=== PATIENT | male | born 1935 | race Caucasian/White ===

== ENCOUNTER 2018-05-25 08:59 | Inpatient (IN) | payer OTHER ==
[~2018-05-25] VITALS: Ht 177.8 cm; Wt 76.2 kg
[~2018-05-25 08:59] MED LIST: ALBUTEROL0.09 MG/AC INH; BACTRIM DS 8001 TA1 PO; CEPHALEXIN500 M1 PO; CIPROFLOXACIN500 MG PO; CYCLOBENZAPRINE10 MG PO; FERROUS SULFAT324 M1 PO; FLAGYL500 MG PO; LEVOTHYROXINE0.05 MG PO; MEDROL DOSEPAK4 MG PO; MIRALAX POWDER255 GM PO; PERCOCET 325 MG1 TA5 PO; PROCTOCREAM-HC2.5% TP; PROVENTIL0.09 MG/AC IH; ZITHROMAX Z PA250 MG PO
[2018-05-25] MEDS ORDERED: ROPINIROLE HYDRO1 MG PO (09:12)
[2018-05-25] MEDS ORDERED: LEVOTHYROXINE75 MCG PO (09:12)
[2018-05-25] MEDS ORDERED: BACLOFEN5 MG PO (09:12)
[2018-05-25 09:36] LABS: BASO % 0.2 % (0.0-1.0); EOS % 0.9 % (1.0-4.0); HEMATOCRIT 41.4 % (42.0-52.0); HEMOGLOBIN 13.5 g/dl (14.0-18.0); LYMPH # 0.8 10*3/uL (1.3-4.4); LYMPH % 16.4 % (27.0-41.0); MEAN CELL VOLUME 95.2 fl (80.0-94.0); MEAN CORPUSCULAR HGB CONC 32.6 g/dl (33.0-37.0); MEAN PLATELET VOLUME 9.2 fl (9.6-12.3); MONO # 0.2 10*3/uL (0.1-1.0); MONO % 4.6 % (3.0-9.0); NEUT # 3.6 10*3/uL (2.3-7.9); NEUT % 77.7 % (47.0-73.0); PLATELET COUNT AUTOMATED 91 10*3/uL (130-400); RED BLOOD COUNT 4.35 10*6/uL (4.50-5.90); RED CELL DISTRI WIDTH 14.8 % (0-14.5); WHITE BLOOD COUNT 4.6 10*3/uL (4.8-10.8)
[2018-05-25 09:43] LABS: BILIRUBIN NEGATIVE (NEGATIVE); BLOOD 1+ (NEGATIVE); CLARITY SL CLOUDY (CLEAR); COLOR YELLOW (YELLOW); GLUCOSE NEGATIVE (NEGATIVE); KETONE NEGATIVE (NEGATIVE); LEUKO ESTERASE 1+ (NEGATIVE); NITRITE POSITIVE (NEGATIVE); PH 7.5 (5.0-9.0)
[2018-05-25 09:45] LABS: ACT PARTIAL THROMBO TIME 25.2 SECONDS (20.8-31.5)
[2018-05-25 09:53] LABS: ALBUMIN 3.6 gm/dl (3.1-4.5); ALKALINE PHOSPHATASE 106 U/L (45-117); BUN 23 mg/dl (7-24); CHLORIDE 104 mmol/L (98-107); CREATININE 1.49 mg/dL (0.70-1.30); POTASSIUM 4.1 mmol/L (3.5-5.1); SGOT/AST 22 IU/L (3-35); SGPT/ALT 21 U/L (12-78); SODIUM 141 mmol/L (136-145); TOTAL PROTEIN 7.5 gm/dL (6.4-8.2)
[2018-05-25 09:55] LABS: TROPONIN I < 0.015 ng/ml (<0.045)
[2018-05-25 09:57] LABS: BACTERIA 1+; WBC TNTC wbc/hpf (0-5)
[2018-05-25 10:18] VITALS: BP 171/79
[2018-05-25 10:32] VITALS: BP 186/91
[2018-05-25 12:00] VITALS: BP 185/93
[2018-05-25 16:00] VITALS: BP 194/96
[2018-05-25 19:28] VITALS: BP 162/78
[2018-05-25 20:00] VITALS: BP 146/65
[2018-05-26] VITALS: BP 152/77
[2018-05-26 06:30] LABS: EOS # 0.1 10*3/uL (0.0-0.4); EOS % 1.5 % (1.0-4.0); HEMATOCRIT 40.2 % (42.0-52.0); HEMOGLOBIN 12.9 g/dl (14.0-18.0); LYMPH # 0.9 10*3/uL (1.3-4.4); LYMPH % 22.1 % (27.0-41.0); MEAN CELL VOLUME 96.9 fl (80.0-94.0); MEAN CORPUSCULAR HGB 31.1 pg (27.0-31.0); MEAN CORPUSCULAR HGB CONC 32.1 g/dl (33.0-37.0); MEAN PLATELET VOLUME 9.8 fl (9.6-12.3); MONO # 0.2 10*3/uL (0.1-1.0); MONO % 6.2 % (3.0-9.0); NEUT # 2.7 10*3/uL (2.3-7.9); NEUT % 69.7 % (47.0-73.0); PLATELET COUNT AUTOMATED 92 10*3/uL (130-400); RED BLOOD COUNT 4.15 10*6/uL (4.50-5.90); WHITE BLOOD COUNT 3.9 10*3/uL (4.8-10.8)
[2018-05-26 07:06] LABS: CREATININE 1.49 mg/dL (0.70-1.30)
[2018-05-26 07:12] LABS: ACT PARTIAL THROMBO TIME 24.8 SECONDS (20.8-31.5); THYROID STIM HORMONE (HS) 4.88 uIU/ml (0.358-4.75)
[2018-05-26 08:00] VITALS: BP 158/70
[2018-05-26 08:36] LABS: VITAMIN D, 25-HYDROXY 12.4 ng/mL (30-100)
[2018-05-26 12:00] VITALS: BP 152/67
[2018-05-26 16:00] VITALS: BP 168/78
[2018-05-26 20:00] VITALS: BP 157/74
[2018-05-27] VITALS: BP 153/79
[2018-05-27 06:33] LABS: BASO % 0.2 % (0.0-1.0); EOS # 0.1 10*3/uL (0.0-0.4); HEMATOCRIT 41.3 % (42.0-52.0); HEMOGLOBIN 13.2 g/dl (14.0-18.0); LYMPH % 24.2 % (27.0-41.0); MEAN CELL VOLUME 95.6 fl (80.0-94.0); MEAN CORPUSCULAR HGB 30.6 pg (27.0-31.0); MEAN PLATELET VOLUME 9.5 fl (9.6-12.3); MONO # 0.3 10*3/uL (0.1-1.0); MONO % 8.2 % (3.0-9.0); NEUT # 2.6 10*3/uL (2.3-7.9); NEUT % 63.9 % (47.0-73.0); PLATELET COUNT AUTOMATED 95 10*3/uL (130-400); RED BLOOD COUNT 4.32 10*6/uL (4.50-5.90); RED CELL DISTRI WIDTH 14.7 % (0-14.5)
[2018-05-27 07:01] LABS: CREATININE 1.46 mg/dL (0.70-1.30); POTASSIUM 4.1 mmol/L (3.5-5.1)
[2018-05-27 08:00] VITALS: BP 168/74
[2018-05-27 12:00] VITALS: BP 170/70
[2018-05-27 16:00] VITALS: BP 148/76
[2018-05-27 20:00] VITALS: BP 172/81
[2018-05-28] VITALS: BP 150/76
[2018-05-28 06:51] LABS: BASO % 0.3 % (0.0-1.0); EOS # 0.1 10*3/uL (0.0-0.4); EOS % 2.4 % (1.0-4.0); HEMATOCRIT 43.8 % (42.0-52.0); HEMOGLOBIN 14.1 g/dl (14.0-18.0); LYMPH # 0.8 10*3/uL (1.3-4.4); LYMPH % 20.5 % (27.0-41.0); MEAN CELL VOLUME 94.8 fl (80.0-94.0); MEAN CORPUSCULAR HGB 30.5 pg (27.0-31.0); MEAN CORPUSCULAR HGB CONC 32.2 g/dl (33.0-37.0); MEAN PLATELET VOLUME 9.1 fl (9.6-12.3); MONO # 0.2 10*3/uL (0.1-1.0); MONO % 6.5 % (3.0-9.0); NEUT # 2.6 10*3/uL (2.3-7.9); PLATELET COUNT AUTOMATED 92 10*3/uL (130-400); RED BLOOD COUNT 4.62 10*6/uL (4.50-5.90); RED CELL DISTRI WIDTH 14.7 % (0-14.5); WHITE BLOOD COUNT 3.7 10*3/uL (4.8-10.8)
[2018-05-28 07:13] LABS: CREATININE 1.44 mg/dL (0.70-1.30); POTASSIUM 3.9 mmol/L (3.5-5.1)
[2018-05-28] MEDS ORDERED: AMLODIPINE BESYL5 MG PO (07:57)
[2018-05-28 08:00] VITALS: BP 148/78
== END 2018-05-28 10:15 | disposition home or self-care (01) | DRG 602 ==
LOC: ED 08:59 → 5E 09:25 → EDHOLD 09:25 → 5E 09:40
PROVIDERS: Emergency Medicine; Internal Medicine
PROC: 0HBRXZZ Excision of Toe Nail, External Approach (ICD-10-PCS; principal; 2018-05-26)
DX: L03.116 Cellulitis of left lower limb (principal); N17.0 Acute kidney failure with tubular necrosis; N30.00 Acute cystitis without hematuria; E03.9 Hypothyroidism, unspecified; K57.90 Diverticulosis of intestine, part unspecified, without perforation or abscess without bleeding; L03.115 Cellulitis of right lower limb; I16.0 Hypertensive urgency; D53.9 Nutritional anemia, unspecified; R73.9 Hyperglycemia, unspecified; D72.819 Decreased white blood cell count, unspecified; D69.6 Thrombocytopenia, unspecified; B37.2 Candidiasis of skin and nail; I87.2 Venous insufficiency (chronic) (peripheral); Z85.820 Personal history of malignant melanoma of skin; Z92.3 Personal history of irradiation; Z92.21 Personal history of antineoplastic chemotherapy; Z82.0 Family history of epilepsy and other diseases of the nervous system; Z79.899 Other long term (current) drug therapy; Z78.9 Other specified health status

== ENCOUNTER 2019-08-04 11:52 | Inpatient (IN) | payer OTHER ==
[2019-08-04] VITALS (8 sets, daily range): BP systolic 75–112; BP diastolic 48–74
[~2019-08-04] VITALS: Ht 177.8 cm; Wt 81.8 kg
[~2019-08-04 11:52] MED LIST changes: +AMLODIPINE BESYL5 MG PO; +BACLOFEN5 MG PO; +LEVOTHYROXINE75 MCG PO; +ROPINIROLE HYDRO1 MG PO
--- NOTE | 2019-08-04 13:00 | NUR ---
PT WITH BLE WITH SCALING/REDNESS NOTED FROM KNEES TO FEET.
[2019-08-04 13:02] LABS: EOS # 0.1 10*3/uL (0.0-0.4); EOS % 1.7 % (1.0-4.0); HEMATOCRIT 40.7 % (42.0-52.0); LYMPH # 0.9 10*3/uL (1.3-4.4); LYMPH % 19.1 % (27.0-41.0); MEAN CELL VOLUME 96.2 fl (80.0-94.0); MEAN CORPUSCULAR HGB 30.7 pg (27.0-31.0); MEAN CORPUSCULAR HGB CONC 31.9 g/dl (33.0-37.0); MEAN PLATELET VOLUME 9.8 fl (9.6-12.3); MONO # 0.3 10*3/uL (0.1-1.0); MONO % 7.3 % (3.0-9.0); NEUT # 3.4 10*3/uL (2.3-7.9); NEUT % 71.7 % (47.0-73.0); PLATELET COUNT AUTOMATED 98 10*3/uL (130-400); RED BLOOD COUNT 4.23 10*6/uL (4.50-5.90); RED CELL DISTRI WIDTH 13.2 % (0-14.5); WHITE BLOOD COUNT 4.7 10*3/uL (4.8-10.8)
[2019-08-04 13:11] LABS: INTERNATIONAL NORM RATIO 0.9 (2.0-3.5)
[2019-08-04 13:15] LABS: ALKALINE PHOSPHATASE 98 U/L (45-117); BUN 35 mg/dl (7-24); CHLORIDE 110 mmol/L (98-107); CREATININE 2.17 mg/dL (0.70-1.30); LIPASE 143 U/L (73-393); POTASSIUM 4.6 mmol/L (3.5-5.1); SGOT/AST 17 IU/L (3-35); SGPT/ALT 20 U/L (12-78); SODIUM 143 mmol/L (136-145); TOTAL PROTEIN 6.9 gm/dL (6.4-8.2)
[2019-08-04 13:16] LABS: TROPONIN I < 0.015 ng/ml (<0.045)
--- NOTE | 2019-08-04 13:24 | NUR ---
PT AWARE THAT REQUIRE A URINE SAMPLE FOR ANALYSIS,PT POSITIONED FOR COMGFORT WITH CALL LIGHT WITHIN REACH.
[2019-08-04 13:56] LABS: BILIRUBIN NEGATIVE (NEGATIVE); BLOOD 1+ (NEGATIVE); CLARITY CLOUDY (CLEAR); COLOR YELLOW (YELLOW); GLUCOSE NEGATIVE (NEGATIVE); KETONE NEGATIVE (NEGATIVE); LEUKO ESTERASE 3+ (NEGATIVE); NITRITE POSITIVE (NEGATIVE); UROBILINOGEN 0.2 E.U./dl (0.2-1.0)
[2019-08-04 14:18] LABS: BACTERIA 1+; WBC TNTC wbc/hpf (0-5)
[2019-08-04] MEDS ORDERED: Percocet 325 MG1 TAB PO (15:29)
[2019-08-04] MEDS ORDERED: DOXAZOSIN MESYLA8 MG PO (15:29)
[2019-08-04] MEDS ORDERED: LISINOPRIL5 MG PO (15:30)
[2019-08-04] MEDS ORDERED: OHM ALLERGY REL10 MG PO (15:30)
--- NOTE | 2019-08-04 15:53 | NUR ---
DELAY IN ADMISSION D/T SECURITY ATTEMPTING TO PUT PT'S MOTORIZED W/C IN ANOTHER PLACE FOR SAFE KEEPING IN PLACE OF PT'S ROOM.
--- NOTE | 2019-08-04 16:02 | NUR ---
A 83, admitted to , under the services of DEMARCUS Yi DO with a diagnosis of ISSAC, UTI, SEVERE SEPSIS. Chief complaint is LOW BP. Patient arrived via bed from ER. Monitor applied. Initial assessment completed. Vital signs taken and recorded. DEMARCUS YI DO notified of admission to the unit. Orders received. See assessment for past medical history, medications and allergies. Patient and/or family oriented to unit. [facility] visitation policy reviewed. Clothing/patient valuable form completed. MOE TOURE
--- NOTE | 2019-08-04 16:33 | NUR ---
NOTIFED DR THORNTON RESIDENT ON THE NEW ADMISSION AND THAT THE MED REC IS UPDATED, HE STATES "OK"
--- NOTE | 2019-08-04 19:30 | NUR ---
PATIENT HAS MULTIPLE SCABS OVER BODY.
[2019-08-05] VITALS: BP 104/55
--- NOTE | 2019-08-05 04:23 | NUR ---
24 HR chart check completed.
[2019-08-05 06:14] LABS: EOS # 0.1 10*3/uL (0.0-0.4); EOS % 3.2 % (1.0-4.0); HEMOGLOBIN 10.8 g/dl (14.0-18.0); LYMPH # 0.8 10*3/uL (1.3-4.4); LYMPH % 25.2 % (27.0-41.0); MEAN CELL VOLUME 97.5 fl (80.0-94.0); MEAN CORPUSCULAR HGB 30.1 pg (27.0-31.0); MEAN CORPUSCULAR HGB CONC 30.9 g/dl (33.0-37.0); MEAN PLATELET VOLUME 9.7 fl (9.6-12.3); MONO # 0.2 10*3/uL (0.1-1.0); MONO % 6.5 % (3.0-9.0); NEUT % 64.8 % (47.0-73.0); PLATELET COUNT AUTOMATED 82 10*3/uL (130-400); RED BLOOD COUNT 3.59 10*6/uL (4.50-5.90); RED CELL DISTRI WIDTH 13.2 % (0-14.5); WHITE BLOOD COUNT 3.1 10*3/uL (4.8-10.8)
--- NOTE | 2019-08-05 06:15 | NUR ---
MARK FELDMAN [id number] Please refer to the physician's history and physical for past medical history, comorbid conditions, and allergies. Diagnosis: ISSAC URINARY TRACT INFECTION SEVERE SEPSIS Maurilio Score: 14,MODERATE RISK WOUND DESCRIPTIONS: Patient bilateral lower extremities are dry, red, flaky at time of assessment. No drainage noted at time of assessment. Pt stated he has had this problem in the past and saw Dr. Gregg Lynn at [facility]. He stated this started again about 3 weeks ago and hasn't follow up with anyone. He has intact scabbed areas noted to right hand, right forehead, right forearm, left forearm, left elbow, and 2 to the right ear. Patient states these areas are from him picking because his skin is so dry. Surface the patient is resting on: Isoflex SKIN PREVENTION RECOMMENDATION: 1. Pressure redistribution support surface as appropriate 2. Elevate heels 3. Remove boots/TEDS every shift and reapply 4. Head of bed 30 degrees as tolerated 5. Assess nutrition and hydration 6. Manage moisture 7. Avoid the use of containment devices while in bed 8. Use absorptive products on surfaces limit layers of linens on bed 9. Turn and reposition every 1-2 hours in bed and every 1 hour in chair as tolerated 10. Weight shifts every 15 minutes while up in chair 11. Offloading with pillows or device to keep heels elevated off bed 12. Monitor skin at least every shift 13. Inspect under medical devices twice a day WOUND TREATMENT RECOMMENDATIONS: Venous and arterial studies to bilateral lower extremities. Consult podiatry for areas to bilateral lower extremities. Dressing change: Cleanse bilateral lower extremities with soap and water and apply lac-hydrin bid.
[2019-08-05 06:33] LABS: POTASSIUM 4.2 mmol/L (3.5-5.1)
[2019-08-05 06:45] LABS: ALBUMIN 2.4 gm/dl (3.1-4.5); CREATININE 1.77 mg/dL (0.70-1.30); FREE T4 1.02 ng/dl (0.76-1.46); PHOSPHOROUS 4.5 mg/dL (2.5-4.9); THYROID STIM HORMONE (HS) 5.81 uIU/ml (0.358-4.75); TOTAL PROTEIN 5.5 gm/dL (6.4-8.2)
[2019-08-05 07:29] VITALS: BP 102/60
--- NOTE | 2019-08-05 07:41 | NUR ---
PT AWAKE AND PLEASENT, NO COMPLAINTS, STATES HE IS FEELING REAL GOOD TODAY, STATED HE IS HUNGRY AND IS GOING TO ORDER BREAKFAST. WILL CONTINUE TO MONITOR. POOJA WHALEN
[2019-08-05 07:46] LABS: VITAMIN D, 25-HYDROXY 50.7 ng/mL (30-100)
--- NOTE | 2019-08-05 07:54 | NUR ---
PT HAS BILATERAL EDEMA IN LOWER EXTREMITIES POOJA SELF
--- NOTE | 2019-08-05 08:52 | NUR ---
Brie KOHLER notified of wound care recommendations.
--- NOTE | 2019-08-05 09:00 | NUR ---
Machine Filler in to talk to patient. Patient states lives at home with alone. There are no steps in the home. Physician: rocael arredondo [facility]acy: [facility] health services: [facility] 7 days a week Patient's level of ADLs: INDEPENDENT Patient has working utilities: all working DME: motorized wheelchair Follow-up physician's appointment after d/c: will be made by hospitalist nurse director upon discharge Does patient want to access PORTAL?: no Discharge plan discussed with patient, he states he lives at home alone, he has a motorized wheelchair he uses due to being a paraplegic, he stated he is independent in adls, he also states he goes to the grocery store and doctors visits by himself using his motorized wheelchair, he has [facility] 7 days a week for 2 hours in the morning and one hour in the evening, patient stated he would be returning home when able and denies any other home services, case managment will follow. ISH MCKENZIE
--- NOTE | 2019-08-05 09:40 | NUR ---
TO RADIOLOGY [facility]IA [facility]
[2019-08-05 10:30] VITALS: BP 148/60
--- NOTE | 2019-08-05 10:40 | NUR ---
BACK FROM RADIOLOGY, PODIATRY IN TO SEE PT [facility]
--- NOTE | 2019-08-05 11:39 | NUR ---
PT BATHED WITH ASSISTANCE AND SHAVED SELF. NO COMPLAINTS RESTING COMFORTABLY IN BED, WILL CONTINUE TO MONITOR. POOJA [facility]COSTA [facility]
[2019-08-05 12:00] VITALS: BP 124/68
--- NOTE | 2019-08-05 12:51 | NUR ---
PODIATRY WAS IN TO CUT PT NAILS. PT IN VERY PLEASENT MOOD. NO COMPLAINTS, RESTING IN BED. POOJA ACOSTA SP[facility]
--- NOTE | 2019-08-05 14:11 | NUR ---
PT STATES THAT LONG HE TAKES HIS ROUTINE PAIN MEDICATION THAT HE IS NOT IN ANY PAIN POOJA WHALEN
--- NOTE | 2019-08-05 14:45 | NUR ---
Occupational Therapy evaluation completed on 4 with full eval to follow. Precautions include fall risk,IV RUE,paraplegia,heel protectors,moderate complexity 22699. Patient became frustrated with environment and therapist requests for bed mobility and sitting and transfers. He performed supine to sit but felt that things weren not set up as they are at home for ease in transfers, and self care. Patient verbalizes that he CAN perform his own transfers and self care as prior to admission and did not need any therapy. He also declined any need for home health OT/PT but he will have 7day/wk non-skiled aides in the home am and pm as prior to admission. Discharge OT referral at this time. Recommend return home upon d/c. Thank you. Dia Breaux OTr/l
--- NOTE | 2019-08-05 15:34 | NUR ---
PHYSICAL THERAPY Eval completed moderate level of complexity 34568, recomend home with home health and patients caregving staff. Presently pt feels "much better" and that he is back to his baseline. He does not want to participate in therapy here as he has a particular set up and way of transfering at his home. Per patient request laquita only at this time, thank you. Maria Guadalupe Pena PT
[2019-08-05 16:00] VITALS: BP 135/63
[2019-08-05 20:00] VITALS: BP 138/79
[2019-08-06] VITALS: BP 133/86
--- NOTE | 2019-08-06 01:27 | NUR ---
24 HR chart check completed.
[2019-08-06 06:57] LABS: ALBUMIN 2.5 gm/dl (3.1-4.5); CREATININE 1.7 mg/dL (0.70-1.30); PHOSPHOROUS 3.6 mg/dL (2.5-4.9); POTASSIUM 4.2 mmol/L (3.5-5.1)
--- NOTE | 2019-08-06 07:30 | NUR ---
TOOK OVER CARE OF PT. PT RESTING IN BED. RESPIRATIONS UNLABORED. NO S/S OF DISTRESS. ALL NEEDS ARE MET AT THIS TIME. CALL LIGHT IN REACH.
--- NOTE | 2019-08-06 09:00 | NUR ---
case managment visits with patient, discussed with him [facility] and he was receptive to this, given choice of companies he chose [facility], case management will send referral to [facility] for when patient is medically stable for discharge
[2019-08-06 09:28] VITALS: BP 132/62
[2019-08-06 12:00] VITALS: BP 143/67
--- NOTE | 2019-08-06 12:00 | NUR ---
PT RESTING IN BED. RESPIRATIONS UNLABORED. NO S/S OF DISTRESS AND NO COMPLAINTS VOICED. CALL LIGHT IN REACH.
--- NOTE | 2019-08-06 12:46 | NUR ---
Received home health order for [facility]. Faxed order and referral. Notified [facility] possible discharge today. Will fax face to face when received.
[2019-08-06 16:00] VITALS: BP 137/62
--- NOTE | 2019-08-06 18:00 | NUR ---
PT RESTING IN BED AT THIS TIME. NO S/S OF DISTRESS NOTED. NO COMPLAINTS ARE VOICED AT THIS TIME. IV SITE TO RIGHT ANTECUBITAL IN TACT, FLUSHING WITH EASE AND GIVING GOOD BLOOD RETURN. IV ATB RUNNING PER ORDERS. RESPIRATIONS EASY AND ON ROOM AIR. ALL SAFETY MEASURES IN PLACE. CALL LIGHT IN PLACE.
[2019-08-06 20:00] VITALS: BP 158/75
[2019-08-07] VITALS: BP 138/82
--- NOTE | 2019-08-07 01:46 | NUR ---
24 HR chart check completed.
[2019-08-07 06:21] LABS: EOS # 0.1 10*3/uL (0.0-0.4); EOS % 3.7 % (1.0-4.0); HEMATOCRIT 37.7 % (42.0-52.0); HEMOGLOBIN 11.9 g/dl (14.0-18.0); LYMPH # 0.7 10*3/uL (1.3-4.4); LYMPH % 22.4 % (27.0-41.0); MEAN CELL VOLUME 95.7 fl (80.0-94.0); MEAN CORPUSCULAR HGB 30.2 pg (27.0-31.0); MEAN CORPUSCULAR HGB CONC 31.6 g/dl (33.0-37.0); MEAN PLATELET VOLUME 9.5 fl (9.6-12.3); MONO # 0.2 10*3/uL (0.1-1.0); MONO % 7.2 % (3.0-9.0); NEUT # 2.1 10*3/uL (2.3-7.9); NEUT % 66.4 % (47.0-73.0); PLATELET COUNT AUTOMATED 87 10*3/uL (130-400); RED BLOOD COUNT 3.94 10*6/uL (4.50-5.90); RED CELL DISTRI WIDTH 13.1 % (0-14.5); WHITE BLOOD COUNT 3.2 10*3/uL (4.8-10.8)
[2019-08-07 06:48] LABS: CREATININE 1.5 mg/dL (0.70-1.30); POTASSIUM 4.3 mmol/L (3.5-5.1)
[2019-08-07 08:00] VITALS: BP 162/67
--- NOTE | 2019-08-07 08:00 | NUR ---
TOOK OVER CARE OF PT. PT RESTING IN BED. RESPIRATIONS EASY AND UNLABORED WITH NO S/S O DISTRESS NOTED. ALL NEEDS ARE MET AT THIS TIME. ALL SAFETY MEASURES IN PLACE. CALL LIGHT IN REACH.
--- NOTE | 2019-08-07 09:00 | NUR ---
case management visits with patient, he will be discharged to home today, [facility] notified that patient is being discharged
[2019-08-07] MEDS ORDERED: CIPRO250 MG PO (09:27)
[2019-08-07] MEDS ORDERED: MACRODANTIN100 M1 PO (09:27)
--- NOTE | 2019-08-07 09:45 | NUR ---
PT REFUSES DISCHARGE PHOTOS AT THIS TIME DUE TO BEING DRESSED AND UP IN MOTORIZED WHEELCHAIR.
--- NOTE | 2019-08-07 10:10 | NUR ---
Discharge instructions reviewed with patient/family. Patient receptive and verbalizes understanding. Follow-up care arranged. Written instructions given to patient/family. JAKY CABRERA
[2019-08-07] MEDS ORDERED: MACROBID100 M1 PO (10:20)
== END 2019-08-07 10:10 | disposition home or self-care (01) | DRG 871 ==
LOC: ED 11:52 → EDHOLD 14:59 → 4E 14:59
PROVIDERS: Internal Medicine; Nurse Practitioner Family; Registered Nurse; ADMIT Family Medicine
DX: A41.9 Sepsis, unspecified organism (principal); N17.0 Acute kidney failure with tubular necrosis; N30.01 Acute cystitis with hematuria; L03.116 Cellulitis of left lower limb; L03.115 Cellulitis of right lower limb; E44.0 Moderate protein-calorie malnutrition; D61.818 Other pancytopenia; I95.9 Hypotension, unspecified; R65.20 Severe sepsis without septic shock; D53.9 Nutritional anemia, unspecified; E03.9 Hypothyroidism, unspecified; B37.2 Candidiasis of skin and nail; I87.2 Venous insufficiency (chronic) (peripheral); Z82.0 Family history of epilepsy and other diseases of the nervous system; Z79.899 Other long term (current) drug therapy; Z68.25 Body mass index [BMI] 25.0-25.9, adult; Z85.820 Personal history of malignant melanoma of skin

== ENCOUNTER 2021-04-07 12:30 | Inpatient (IN) | payer OTHER ==
[~2021-04-07] VITALS: Ht 177.8 cm; Wt 74.8 kg
[~2021-04-07 12:30] MED LIST changes: +CIPRO250 MG PO; +DOXAZOSIN MESYLA8 MG PO; -FERROUS SULFAT324 M1 PO; +IRON325 M1 PO; +LISINOPRIL5 MG PO; +MACROBID100 M1 PO; +MACRODANTIN100 M1 PO; +OHM ALLERGY REL10 MG PO; +Percocet 325 MG1 TAB PO
[2021-04-07 12:43] VITALS: BP 174/65
[2021-04-07 13:29] LABS: BASO % 0.2 % (0.0-1.0); EOS # 0.1 10*3/uL (0.0-0.4); EOS % 1.2 % (1.0-4.0); HEMATOCRIT 37.8 % (42.0-52.0); LYMPH # 0.6 10*3/uL (1.3-4.4); LYMPH % 14.4 % (27.0-41.0); MEAN CELL VOLUME 100.8 fl (80.0-94.0); MEAN CORPUSCULAR HGB 31.5 pg (27.0-31.0); MEAN CORPUSCULAR HGB CONC 31.2 g/dl (33.0-37.0); MEAN PLATELET VOLUME 8.9 fl (9.6-12.3); MONO # 0.2 10*3/uL (0.1-1.0); MONO % 5.2 % (3.0-9.0); NEUT # 3.3 10*3/uL (2.3-7.9); NEUT % 78.8 % (47.0-73.0); PLATELET COUNT AUTOMATED 119 10*3/uL (130-400); RED BLOOD COUNT 3.75 10*6/uL (4.50-5.90); RED CELL DISTRI WIDTH 14.6 % (0-14.5); WHITE BLOOD COUNT 4.2 10*3/uL (4.8-10.8)
[2021-04-07 13:46] LABS: ALBUMIN 2.8 gm/dl (3.1-4.5); ALKALINE PHOSPHATASE 115 U/L (45-117); BUN 18 mg/dl (7-24); CHLORIDE 106 mmol/L (98-107); CREATININE 1.48 mg/dL (0.70-1.30); LIPASE 114 U/L (73-393); POTASSIUM 4.2 mmol/L (3.5-5.1); SGOT/AST 16 IU/L (3-35); SGPT/ALT 16 U/L (12-78); SODIUM 140 mmol/L (136-145); TOTAL PROTEIN 6.8 gm/dL (6.4-8.2)
[2021-04-07 13:57] LABS: TROPONIN I < 0.015 ng/ml (<0.045)
[2021-04-07 17:30] VITALS: BP 168/72
[2021-04-07] MEDS ORDERED: CYCLOBENZAPRINE10 MG PO (17:53)
[2021-04-07 20:00] VITALS: BP 103/68
[2021-04-08] VITALS: BP 118/59
[2021-04-08 06:15] LABS: EOS # 0.1 10*3/uL (0.0-0.4); HEMATOCRIT 35.3 % (42.0-52.0); LYMPH # 0.9 10*3/uL (1.3-4.4); LYMPH % 25.4 % (27.0-41.0); MEAN CELL VOLUME 101.4 fl (80.0-94.0); MEAN CORPUSCULAR HGB 31.6 pg (27.0-31.0); MEAN CORPUSCULAR HGB CONC 31.2 g/dl (33.0-37.0); MEAN PLATELET VOLUME 9.3 fl (9.6-12.3); MONO # 0.3 10*3/uL (0.1-1.0); MONO % 7.1 % (3.0-9.0); NEUT # 2.3 10*3/uL (2.3-7.9); NEUT % 65.5 % (47.0-73.0); PLATELET COUNT AUTOMATED 114 10*3/uL (130-400); RED BLOOD COUNT 3.48 10*6/uL (4.50-5.90); RED CELL DISTRI WIDTH 14.6 % (0-14.5); WHITE BLOOD COUNT 3.5 10*3/uL (4.8-10.8)
[2021-04-08 06:43] LABS: ALBUMIN 2.4 gm/dl (3.1-4.5); BUN 18 mg/dl (7-24); CHLORIDE 108 mmol/L (98-107); POTASSIUM 4.1 mmol/L (3.5-5.1); SODIUM 141 mmol/L (136-145)
[2021-04-08 06:50] LABS: ALKALINE PHOSPHATASE 99 U/L (45-117); CHOLESTEROL 85 mg/dL (<200); CREATININE 1.28 mg/dL (0.70-1.30); LDL CHOLESTEROL 34 mg/dL (9-159); SGOT/AST 15 IU/L (3-35); SGPT/ALT 13 U/L (12-78); TOTAL PROTEIN 5.9 gm/dL (6.4-8.2); TRIGLYCERIDES 85 mg/dl (<150)
[2021-04-08 08:00] VITALS: BP 123/63
[2021-04-08 08:21] LABS: VITAMIN D, 25-HYDROXY 46.8 ng/mL (30-100)
[2021-04-08] MEDS ORDERED: DOXYCYCLINE100 M3 PO (10:29)
== END 2021-04-08 13:56 | disposition home or self-care (01) | DRG 602 ==
LOC: ED 12:30 → EDHOLD 13:07 → 5E 17:26
PROVIDERS: Emergency Medicine; Internal Medicine; ADMIT Family Medicine; ATTEND Family Medicine
DX: L03.115 Cellulitis of right lower limb (principal); N17.0 Acute kidney failure with tubular necrosis; D61.818 Other pancytopenia; E44.0 Moderate protein-calorie malnutrition; I89.0 Lymphedema, not elsewhere classified; I87.8 Other specified disorders of veins; N18.31 Chronic kidney disease, stage 3a; E03.9 Hypothyroidism, unspecified; D53.9 Nutritional anemia, unspecified; R73.9 Hyperglycemia, unspecified; B35.1 Tinea unguium; I12.9 Hypertensive chronic kidney disease with stage 1 through stage 4 chronic kidney disease, or unspecified chronic kidney disease; Z68.23 Body mass index [BMI] 23.0-23.9, adult; N18.30 Chronic kidney disease, stage 3 unspecified

== ENCOUNTER 2022-09-20 13:50 | Emergency (ER) | payer OTHER ==
[~2022-09-20] VITALS: Wt 67.1 kg
[~2022-09-20 13:50] MED LIST changes: +DOXYCYCLINE100 M3 PO
[2022-09-20 15:28] LABS: BASO % 0.2 % (0.0-1.0); EOS % 0.3 % (1.0-4.0); HEMATOCRIT 38.1 % (42.0-52.0); LYMPH # 0.5 10*3/uL (1.3-4.4); LYMPH % 8.1 % (27.0-41.0); MEAN CELL VOLUME 106.7 fl (80.0-94.0); MEAN CORPUSCULAR HGB 33.1 pg (27.0-31.0); MEAN PLATELET VOLUME 9.5 fl (9.6-12.3); MONO # 0.2 10*3/uL (0.1-1.0); MONO % 3.2 % (3.0-9.0); NEUT # 5.5 10*3/uL (2.3-7.9); NEUT % 87.9 % (47.0-73.0); PLATELET COUNT AUTOMATED 117 10*3/uL (130-400); RED BLOOD COUNT 3.57 10*6/uL (4.50-5.90); RED CELL DISTRI WIDTH 15.2 % (0-14.5); WHITE BLOOD COUNT 6.3 10*3/uL (4.8-10.8)
[2022-09-20 15:49] LABS: ALKALINE PHOSPHATASE 92 U/L (46-116); BUN 24 mg/dl (9-23); CHLORIDE 106 mmol/L (98-107); POTASSIUM 4.5 mmol/L (3.4-5.1); SGPT/ALT 9 U/L (10-49); TOTAL PROTEIN 6.5 gm/dL (6.0-8.0)
[2022-09-22] MEDS ORDERED: LASIX20 MG PO (14:09)
[2022-09-22] MEDS ORDERED: DILTIAZEM HYDR120 M2 PO (14:11)
== END 2022-09-20 20:21 | disposition home or self-care (01) ==
LOC: ED 13:50
PROVIDERS: Physician Assistant
DX: E86.0 Dehydration (principal); Z79.899 Other long term (current) drug therapy

== ENCOUNTER → 2022-12-21 | Outpatient (CLI) | payer OTHER ==
[~2022-12-21] MED LIST changes: +AMMONIUM LACTA227 GM T; +ATORVASTATIN CA40 M1 PO; -BACLOFEN5 MG PO; +CARDIZEM CD120 M2 PO; +DILTIAZEM HYDR120 M2 PO; +FEROSUL325 M1 PO; +FUROSEMIDE20 M1 PO; +LASIX20 MG PO; +LEVOFLOXACIN750 M2 PO; +LYVISPAH10 M1 PO; +METOPROLOL SUCC25 M2 PO; +MUCINEX ER600 MG PO; +OMNICEF300 MG PO; +PHARMASSURE V500 MCG PO; +TAMSULOSIN HCL0.4 MG PO; +TOPROL XL25 MG PO; +XARE20MG PO; +XARELTO20 M1 PO; +ZITHROMAX250 MG PO
== END | disposition home or self-care (01) ==
LOC: WOUNDCARE 00:50
PROVIDERS: ATTEND Nurse Practitioner Family
DX: S61.402A Unspecified open wound of left hand, initial encounter (principal); E03.9 Hypothyroidism, unspecified; I48.91 Unspecified atrial fibrillation; G82.20 Paraplegia, unspecified; I12.9 Hypertensive chronic kidney disease with stage 1 through stage 4 chronic kidney disease, or unspecified chronic kidney disease; N18.9 Chronic kidney disease, unspecified; Z99.3 Dependence on wheelchair; X58.XXXA Exposure to other specified factors, initial encounter; Y93.89 Activity, other specified; Y92.89 Other specified places as the place of occurrence of the external cause; Y99.8 Other external cause status

== ENCOUNTER 2023-02-18 15:33 | Emergency (ER) | payer OTHER ==
[~2023-02-18 15:33] MED LIST changes: +Bactroban Oint22 GM T; +CARDURA8 MG PO; +DILTIAZEM HCL120 M2 PO
== END 2023-02-18 19:14 | disposition home or self-care (01) ==
LOC: ED 15:33
DX: S61.412A Laceration without foreign body of left hand, initial encounter (principal); C44.90 Unspecified malignant neoplasm of skin, unspecified; I48.91 Unspecified atrial fibrillation; Z98.890 Other specified postprocedural states; F17.200 Nicotine dependence, unspecified, uncomplicated; W23.0XXA Caught, crushed, jammed, or pinched between moving objects, initial encounter; X58.XXXA Exposure to other specified factors, initial encounter; Y93.89 Activity, other specified; Y92.89 Other specified places as the place of occurrence of the external cause; Y99.8 Other external cause status

== ENCOUNTER 2023-02-21 23:31 | Emergency (ER) | payer OTHER ==
[~2023-02-21] VITALS: Ht 175.2 cm; Wt 67.6 kg
[2023-02-22 00:11] LABS: EOS # 0.1 10*3/uL (0.0-0.4); EOS % 1.1 % (1.0-4.0); HEMATOCRIT 36.7 % (42.0-52.0); LYMPH # 0.7 10*3/uL (1.3-4.4); LYMPH % 16.8 % (27.0-41.0); MEAN CELL VOLUME 92.7 fl (80.0-94.0); MEAN CORPUSCULAR HGB 28.8 pg (27.0-31.0); MEAN CORPUSCULAR HGB CONC 31.1 g/dl (33.0-37.0); MEAN PLATELET VOLUME 9.4 fl (9.6-12.3); MONO # 0.3 10*3/uL (0.1-1.0); MONO % 6.8 % (3.0-9.0); NEUT # 3.3 10*3/uL (2.3-7.9); NEUT % 75.1 % (47.0-73.0); PLATELET COUNT AUTOMATED 100 10*3/uL (130-400); RED BLOOD COUNT 3.96 10*6/uL (4.50-5.90); RED CELL DISTRI WIDTH 13.2 % (0-14.5); WHITE BLOOD COUNT 4.4 10*3/uL (4.8-10.8)
[2023-02-22 00:33] LABS: ALKALINE PHOSPHATASE 94 U/L (46-116); BUN 21 mg/dl (9-23); CHLORIDE 105 mmol/L (98-107); POTASSIUM 4.1 mmol/L (3.4-5.1); TOTAL PROTEIN 6.4 gm/dL (6.0-8.0)
[2023-02-22 00:33] LABS: BILIRUBIN Negative (Negative); BLOOD Negative (Negative); CLARITY Clear (Clear); COLOR Yellow (Yellow); GLUCOSE Negative (Negative); KETONE Trace (Negative); LEUKO ESTERASE Trace (Negative); NITRITE Negative (Negative); PH 5.5 (4.5-8.0)
[2023-02-22 00:34] LABS: SGPT/ALT < 7 U/L (10-49)
== END 2023-02-22 03:49 | disposition home or self-care (01) ==
LOC: ED 23:31
PROVIDERS: Internal Medicine
DX: N17.9 Acute kidney failure, unspecified (principal); N18.9 Chronic kidney disease, unspecified; E86.0 Dehydration; Z85.9 Personal history of malignant neoplasm, unspecified; R73.9 Hyperglycemia, unspecified; E44.1 Mild protein-calorie malnutrition; Z68.1 Body mass index [BMI] 19.9 or less, adult; I48.91 Unspecified atrial fibrillation; D64.9 Anemia, unspecified; Z98.890 Other specified postprocedural states; F17.200 Nicotine dependence, unspecified, uncomplicated

== ENCOUNTER 2023-02-27 03:05 | Emergency (ER) | payer OTHER ==
[~2023-02-27] VITALS: Ht 177.8 cm; Wt 69.9 kg
[2023-02-27 03:34] LABS: BASO % 0.3 % (0.0-1.0); EOS # 0.1 10*3/uL (0.0-0.4); HEMATOCRIT 34.1 % (42.0-52.0); LYMPH % 29.4 % (27.0-41.0); MEAN CELL VOLUME 93.7 fl (80.0-94.0); MEAN CORPUSCULAR HGB 28.8 pg (27.0-31.0); MEAN CORPUSCULAR HGB CONC 30.8 g/dl (33.0-37.0); MEAN PLATELET VOLUME 8.9 fl (9.6-12.3); MONO # 0.3 10*3/uL (0.1-1.0); MONO % 8.5 % (3.0-9.0); NEUT % 59.5 % (47.0-73.0); PLATELET COUNT AUTOMATED 100 10*3/uL (130-400); RED BLOOD COUNT 3.64 10*6/uL (4.50-5.90); RED CELL DISTRI WIDTH 13.4 % (0-14.5); WHITE BLOOD COUNT 3.4 10*3/uL (4.8-10.8)
[2023-02-27 03:56] LABS: ALKALINE PHOSPHATASE 86 U/L (46-116); BUN 17 mg/dl (9-23); CHLORIDE 108 mmol/L (98-107); LIPASE 43 U/L (12-53); POTASSIUM 4.3 mmol/L (3.4-5.1); SGPT/ALT < 7 U/L (10-49)
== END 2023-02-27 04:16 | disposition home or self-care (01) ==
LOC: ED 03:05
PROVIDERS: Internal Medicine
DX: M25.042 Hemarthrosis, left hand (principal); F17.210 Nicotine dependence, cigarettes, uncomplicated; Z79.899 Other long term (current) drug therapy; Z98.890 Other specified postprocedural states

== ENCOUNTER 2023-06-01 10:14 | Emergency (ER) | payer OTHER ==
[~2023-06-01 10:14] MED LIST changes: +DILTIAZEM HCL60 MG PO; +DOXYCYCLINE HY100 M3 PO; +HYDROXYZINE HCL25 MG PO; +OXYCODONE HCL5 MG PO
[2023-06-01] MEDS ORDERED: NASAL SPRAY44 M1 NAS (10:57)
[2023-06-01 11:04] LABS: EOS % 0.4 % (1.0-4.0); HEMATOCRIT 29.6 % (42.0-52.0); LYMPH # 0.7 10*3/uL (1.3-4.4); MEAN CELL VOLUME 90.8 fl (80.0-94.0); MEAN CORPUSCULAR HGB CONC 29.7 g/dl (33.0-37.0); MEAN PLATELET VOLUME 9.4 fl (9.6-12.3); MONO # 0.4 10*3/uL (0.1-1.0); NEUT # 3.9 10*3/uL (2.3-7.9); NEUT % 77.4 % (47.0-73.0); PLATELET COUNT AUTOMATED 171 10*3/uL (130-400); RED BLOOD COUNT 3.26 10*6/uL (4.50-5.90); RED CELL DISTRI WIDTH 16.9 % (0-14.5)
[2023-06-01 11:18] LABS: ACT PARTIAL THROMBO TIME 36.5 SECONDS (20.0-32.1); INTERNATIONAL NORM RATIO 1.3 (2.0-3.5)
[2023-06-01 11:25] LABS: ALKALINE PHOSPHATASE 121 U/L (46-116); BUN 25 mg/dl (9-23); CHLORIDE 112 mmol/L (98-107); POTASSIUM 4.1 mmol/L (3.4-5.1); TOTAL PROTEIN 5.7 gm/dL (6.0-8.0)
[2023-06-01 11:30] LABS: SGPT/ALT < 7 U/L (10-49)
[2023-06-04] MEDS ORDERED: VIBRAMYCIN HYC100 MG PO (11:18)
[2023-06-04] MEDS ORDERED: OMNICEF300 MG PO (11:18)
[2023-06-04] MEDS ORDERED: METOPROLOL SUCC25 M2 PO (11:18)
== END 2023-06-01 11:36 ==
LOC: ED 10:14
PROVIDERS: Family Medicine
DX: R04.0 Epistaxis (principal); F17.210 Nicotine dependence, cigarettes, uncomplicated; Z79.899 Other long term (current) drug therapy; Z79.2 Long term (current) use of antibiotics; Z98.890 Other specified postprocedural states; Z79.01 Long term (current) use of anticoagulants

== ENCOUNTER 2023-06-06 16:17 | Inpatient (IN) | payer OTHER ==
[~2023-06-06] VITALS: Ht 177.8 cm; Wt 57.7 kg
[~2023-06-06 16:17] MED LIST changes: +NASAL SPRAY44 M1 NAS; +VIBRAMYCIN HYC100 MG PO
[2023-06-06 16:37] LABS: BASO % 0.2 % (0.0-1.0); EOS % 0.6 % (1.0-4.0); HEMATOCRIT 30.2 % (42.0-52.0); LYMPH # 1.3 10*3/uL (1.3-4.4); LYMPH % 26.8 % (27.0-41.0); MEAN CELL VOLUME 92.9 fl (80.0-94.0); MEAN CORPUSCULAR HGB 26.8 pg (27.0-31.0); MEAN CORPUSCULAR HGB CONC 28.8 g/dl (33.0-37.0); MEAN PLATELET VOLUME 9.1 fl (9.6-12.3); MONO # 0.4 10*3/uL (0.1-1.0); MONO % 7.6 % (3.0-9.0); NEUT # 3.2 10*3/uL (2.3-7.9); NEUT % 64.4 % (47.0-73.0); PLATELET COUNT AUTOMATED 120 10*3/uL (130-400); RED BLOOD COUNT 3.25 10*6/uL (4.50-5.90); RED CELL DISTRI WIDTH 17.2 % (0-14.5); WHITE BLOOD COUNT 4.9 10*3/uL (4.8-10.8)
[2023-06-06 16:49] LABS: ACT PARTIAL THROMBO TIME 31.5 SECONDS (20.0-32.1); INTERNATIONAL NORM RATIO 1.1 (2.0-3.5)
[2023-06-06 16:54] VITALS: BP 122/64; BP 140/77
[2023-06-06 17:00] LABS: ALKALINE PHOSPHATASE 95 U/L (46-116); BUN 18 mg/dl (9-23); CHLORIDE 116 mmol/L (98-107); LIPASE 38 U/L (12-53); POTASSIUM 4.1 mmol/L (3.4-5.1); SGPT/ALT < 7 U/L (10-49); TOTAL PROTEIN 5.1 gm/dL (6.0-8.0)
[2023-06-06] MEDS ORDERED: LYVISPAH10 M1 PO (17:13)
[2023-06-06] MEDS ORDERED: PROBIOTIC1 EAC7 PO (17:13)
[2023-06-06] MEDS ORDERED: LEVOXYL88 MCG PO (17:14)
[2023-06-06 18:44] VITALS: BP 130/103
[2023-06-06 19:36] VITALS: BP 136/59
[2023-06-06 21:45] VITALS: BP 138/56
[2023-06-07] VITALS: BP 138/72
[2023-06-07 05:33] LABS: ALKALINE PHOSPHATASE 91 U/L (46-116); BUN 14 mg/dl (9-23); CHLORIDE 114 mmol/L (98-107); POTASSIUM 3.7 mmol/L (3.4-5.1)
[2023-06-07 05:37] LABS: SGPT/ALT < 7 U/L (10-49)
[2023-06-07 06:21] LABS: BASO % 0.3 % (0.0-1.0); EOS % 1.1 % (1.0-4.0); HEMATOCRIT 27.9 % (42.0-52.0); LYMPH % 25.6 % (27.0-41.0); MEAN CELL VOLUME 92.4 fl (80.0-94.0); MEAN CORPUSCULAR HGB 27.5 pg (27.0-31.0); MEAN CORPUSCULAR HGB CONC 29.7 g/dl (33.0-37.0); MEAN PLATELET VOLUME 9.5 fl (9.6-12.3); MONO # 0.2 10*3/uL (0.1-1.0); MONO % 5.6 % (3.0-9.0); NEUT # 2.5 10*3/uL (2.3-7.9); NEUT % 67.1 % (47.0-73.0); PLATELET COUNT AUTOMATED 121 10*3/uL (130-400); RED BLOOD COUNT 3.02 10*6/uL (4.50-5.90); RED CELL DISTRI WIDTH 16.9 % (0-14.5); WHITE BLOOD COUNT 3.8 10*3/uL (4.8-10.8)
[2023-06-07 08:00] VITALS: BP 90/64
[2023-06-07 09:00] LABS: EOS % 1.1 % (1.0-4.0); HEMATOCRIT 31.4 % (42.0-52.0); LYMPH # 1.1 10*3/uL (1.3-4.4); LYMPH % 31.7 % (27.0-41.0); MEAN CELL VOLUME 92.6 fl (80.0-94.0); MEAN CORPUSCULAR HGB 27.4 pg (27.0-31.0); MEAN CORPUSCULAR HGB CONC 29.6 g/dl (33.0-37.0); MEAN PLATELET VOLUME 9.3 fl (9.6-12.3); MONO # 0.1 10*3/uL (0.1-1.0); MONO % 3.6 % (3.0-9.0); NEUT # 2.3 10*3/uL (2.3-7.9); NEUT % 63.3 % (47.0-73.0); PLATELET COUNT AUTOMATED 121 10*3/uL (130-400); RED BLOOD COUNT 3.39 10*6/uL (4.50-5.90); WHITE BLOOD COUNT 3.6 10*3/uL (4.8-10.8)
[2023-06-07 09:05] LABS: ALKALINE PHOSPHATASE 97 U/L (46-116); BUN 14 mg/dl (9-23); CHLORIDE 114 mmol/L (98-107); POTASSIUM 3.9 mmol/L (3.4-5.1); TOTAL PROTEIN 5.2 gm/dL (6.0-8.0)
[2023-06-07 09:11] LABS: SGPT/ALT < 7 U/L (10-49)
[2023-06-07 16:00] VITALS: BP 146/59
[2023-06-07 20:00] VITALS: BP 142/47
[2023-06-08] VITALS (9 sets, daily range): BP systolic 118–178; BP diastolic 50–77
[2023-06-08 07:03] LABS: BASO % 0.2 % (0.0-1.0); EOS % 0.9 % (1.0-4.0); HEMATOCRIT 29.3 % (42.0-52.0); LYMPH # 1.1 10*3/uL (1.3-4.4); LYMPH % 23.3 % (27.0-41.0); MEAN CELL VOLUME 93.6 fl (80.0-94.0); MEAN CORPUSCULAR HGB 27.5 pg (27.0-31.0); MEAN CORPUSCULAR HGB CONC 29.4 g/dl (33.0-37.0); MEAN PLATELET VOLUME 9.6 fl (9.6-12.3); MONO # 0.2 10*3/uL (0.1-1.0); MONO % 5.1 % (3.0-9.0); NEUT # 3.3 10*3/uL (2.3-7.9); NEUT % 70.1 % (47.0-73.0); PLATELET COUNT AUTOMATED 122 10*3/uL (130-400); RED BLOOD COUNT 3.13 10*6/uL (4.50-5.90); RED CELL DISTRI WIDTH 17.2 % (0-14.5); WHITE BLOOD COUNT 4.7 10*3/uL (4.8-10.8)
[2023-06-08 07:42] LABS: ALKALINE PHOSPHATASE 92 U/L (46-116); BUN 15 mg/dl (9-23); CHLORIDE 114 mmol/L (98-107); POTASSIUM 4.1 mmol/L (3.4-5.1); TOTAL PROTEIN 5.1 gm/dL (6.0-8.0)
[2023-06-08 07:46] LABS: SGPT/ALT < 7 U/L (5-49)
[2023-06-09] VITALS: BP 127/53
[2023-06-09 06:24] LABS: EOS # 0.1 10*3/uL (0.0-0.4); EOS % 1.7 % (1.0-4.0); HEMATOCRIT 27.9 % (42.0-52.0); LYMPH # 1.1 10*3/uL (1.3-4.4); LYMPH % 23.5 % (27.0-41.0); MEAN CELL VOLUME 92.4 fl (80.0-94.0); MEAN CORPUSCULAR HGB 26.8 pg (27.0-31.0); MEAN PLATELET VOLUME 9.9 fl (9.6-12.3); MONO # 0.3 10*3/uL (0.1-1.0); MONO % 6.3 % (3.0-9.0); NEUT # 3.2 10*3/uL (2.3-7.9); NEUT % 68.3 % (47.0-73.0); PLATELET COUNT AUTOMATED 127 10*3/uL (130-400); RED BLOOD COUNT 3.02 10*6/uL (4.50-5.90); RED CELL DISTRI WIDTH 17.1 % (0-14.5); WHITE BLOOD COUNT 4.6 10*3/uL (4.8-10.8)
[2023-06-09 06:54] LABS: BUN 15 mg/dl (9-23); CHLORIDE 113 mmol/L (98-107); POTASSIUM 4.1 mmol/L (3.4-5.1)
[2023-06-09 08:00] VITALS: BP 172/64
[2023-06-09 12:00] VITALS: BP 126/63
[2023-06-09 16:00] VITALS: BP 128/66
[2023-06-09 20:00] VITALS: BP 100/52
[2023-06-10] VITALS: BP 101/53
[2023-06-10 06:18] LABS: BASO % 0.1 % (0.0-1.0); EOS # 0.1 10*3/uL (0.0-0.4); HEMATOCRIT 29.4 % (42.0-52.0); LYMPH # 1.3 10*3/uL (1.3-4.4); LYMPH % 18.1 % (27.0-41.0); MEAN CELL VOLUME 93.9 fl (80.0-94.0); MEAN CORPUSCULAR HGB 27.2 pg (27.0-31.0); MEAN CORPUSCULAR HGB CONC 28.9 g/dl (33.0-37.0); MEAN PLATELET VOLUME 9.4 fl (9.6-12.3); MONO # 0.4 10*3/uL (0.1-1.0); MONO % 6.3 % (3.0-9.0); NEUT # 5.2 10*3/uL (2.3-7.9); NEUT % 74.4 % (47.0-73.0); PLATELET COUNT AUTOMATED 127 10*3/uL (130-400); RED BLOOD COUNT 3.13 10*6/uL (4.50-5.90); RED CELL DISTRI WIDTH 17.4 % (0-14.5)
[2023-06-10 06:39] LABS: BUN 20 mg/dl (9-23); CHLORIDE 107 mmol/L (98-107); POTASSIUM 3.8 mmol/L (3.4-5.1)
[2023-06-10 08:00] VITALS: BP 87/45
[2023-06-10] MEDS ORDERED: METOPROLOL SUCC25 M2 PO ×2 (11:12)
[2023-06-10 11:25] VITALS: BP 104/41
[2023-06-10] MEDS ORDERED: LOPRESSOR25 MG PO (12:48)
[2023-06-12] MEDS ORDERED: MAPAP EXTRA ST500 MG PO (04:21)
[2023-06-13] MEDS ORDERED: BACLOFEN5 MG PO (00:28)
[2023-06-13] MEDS ORDERED: AYR SALINE 50 M50 ML NAS (00:30)
[2023-06-13] MEDS ORDERED: PREDNISONE10 MG PO (13:37)
== END 2023-06-10 15:17 | DRG 177 ==
LOC: ED 16:17 → 5E 17:40 → EDHOLD 17:40 → ICCU 17:40 → 5E 20:44 → ICCU 06-07 08:27
PROVIDERS: Emergency Medicine; Internal Medicine; Student in an Organized Health Care Education/Training Program; ADMIT Family Medicine; ATTEND Family Medicine
PROC: 5A0935A Assistance with Respiratory Ventilation, Less than 24 Consecutive Hours, High Flow/Velocity Cannula (ICD-10-PCS; principal; 2023-06-10)
DX: J69.0 Pneumonitis due to inhalation of food and vomit (principal); E43 Unspecified severe protein-calorie malnutrition; G82.22 Paraplegia, incomplete; E87.0 Hyperosmolality and hypernatremia; C79.49 Secondary malignant neoplasm of other parts of nervous system; I47.19 Other supraventricular tachycardia; D64.9 Anemia, unspecified; E78.5 Hyperlipidemia, unspecified; F17.210 Nicotine dependence, cigarettes, uncomplicated; Z66 Do not resuscitate; I45.10 Unspecified right bundle-branch block; N40.0 Benign prostatic hyperplasia without lower urinary tract symptoms; I12.9 Hypertensive chronic kidney disease with stage 1 through stage 4 chronic kidney disease, or unspecified chronic kidney disease; N18.9 Chronic kidney disease, unspecified; D69.6 Thrombocytopenia, unspecified; E87.8 Other disorders of electrolyte and fluid balance, not elsewhere classified; R73.9 Hyperglycemia, unspecified; E03.9 Hypothyroidism, unspecified; G89.3 Neoplasm related pain (acute) (chronic); I48.0 Paroxysmal atrial fibrillation; L89.122 Pressure ulcer of left upper back, stage 2; C44.90 Unspecified malignant neoplasm of skin, unspecified; Z74.01 Bed confinement status; Z82.0 Family history of epilepsy and other diseases of the nervous system; Z86.73 Personal history of transient ischemic attack (TIA), and cerebral infarction without residual deficits; Z79.899 Other long term (current) drug therapy; Z85.828 Personal history of other malignant neoplasm of skin; Z71.6 Tobacco abuse counseling; Z68.23 Body mass index [BMI] 23.0-23.9, adult

== ENCOUNTER 2023-06-22 02:52 | Emergency (ER) | payer OTHER ==
[~2023-06-22] VITALS: Ht 167.6 cm; Wt 79.4 kg
[~2023-06-22 02:52] MED LIST changes: +AYR SALINE 50 M50 ML NAS; +BACLOFEN5 MG PO; +LEVOXYL88 MCG PO; +LOPRESSOR25 MG PO; +MAPAP EXTRA ST500 MG PO; +PREDNISONE10 MG PO; +PROBIOTIC1 EAC7 PO
[2023-06-22 03:16] LABS: BASO % 0.1 % (0.0-1.0); HEMATOCRIT 35.1 % (42.0-52.0); LYMPH # 0.7 10*3/uL (1.3-4.4); MEAN CELL VOLUME 94.1 fl (80.0-94.0); MEAN CORPUSCULAR HGB 26.8 pg (27.0-31.0); MEAN CORPUSCULAR HGB CONC 28.5 g/dl (33.0-37.0); MEAN PLATELET VOLUME 9.2 fl (9.6-12.3); MONO # 0.6 10*3/uL (0.1-1.0); NEUT # 6.9 10*3/uL (2.3-7.9); NEUT % 83.2 % (47.0-73.0); NUCLEATED RED BLOOD CELL 0.1 10*3/uL (0.0-0.0); NUCLEATED RED BLOOD CELL 0.6 % (0.0-0.0); PLATELET COUNT AUTOMATED 173 10*3/uL (130-400); RED BLOOD COUNT 3.73 10*6/uL (4.50-5.90); RED CELL DISTRI WIDTH 17.1 % (0-14.5); WHITE BLOOD COUNT 8.3 10*3/uL (4.8-10.8)
[2023-06-22 03:28] LABS: ACT PARTIAL THROMBO TIME 30.7 SECONDS (20.0-32.1)
[2023-06-22 03:49] LABS: ALKALINE PHOSPHATASE 126 U/L (46-116); BUN 41 mg/dl (9-23); CHLORIDE 116 mmol/L (98-107); LIPASE 34 U/L (12-53); POTASSIUM 4.5 mmol/L (3.4-5.1); TOTAL PROTEIN 5.8 gm/dL (6.0-8.0)
[2023-06-22 03:50] LABS: SGPT/ALT 1436 U/L (5-49)
== END 2023-06-22 09:28 | disposition short-term general hospital (02) ==
LOC: ED 02:52
PROVIDERS: Internal Medicine
DX: I47.0 Re-entry ventricular arrhythmia (principal); E87.0 Hyperosmolality and hypernatremia; N20.0 Calculus of kidney; J18.9 Pneumonia, unspecified organism; R74.01 Elevation of levels of liver transaminase levels; F17.210 Nicotine dependence, cigarettes, uncomplicated; Z79.899 Other long term (current) drug therapy; Z98.890 Other specified postprocedural states